=== PATIENT | male | born 1950 | race Caucasian/White ===

== ENCOUNTER 2022-11-21 16:56 | Outpatient (CLI) | payer MEDICARE, BC | END 2022-11-21 16:57 | disposition critical access hospital (66) | LOC: EMS 16:56 | DX: M54.50 Low back pain, unspecified (principal); M79.605 Pain in left leg; R20.0 Anesthesia of skin | CPT/HCPCS: A0425; A0427 ==

== ENCOUNTER 2022-11-21 17:14 | Emergency (ER) | payer MEDICARE, BC ==
[2022-11-21] MEDS ORDERED: HYDROmorphone 1 MG/ML CARPUJECT IVP STA ×2 (17:22→19:00)
[2022-11-21] MEDS ORDERED: KETOROLAC 30 MG/ML VIAL IVP STA (17:22)
--- NOTE | 2022-11-21 17:49 | ED Physician Documentation ---
History of Present Illness - Stated complaint Stated Complaint: LOW BACK PX - Chief complaint Chief Complaint: Back Pain - History obtained from History obtained from: Patient - Additonal information Additional information: 72 yo M visiting the area from [place] to see his daughter presents w/ left lower back pain radiating into the buttocks and down the left leg. Sx present for several days, worse today. He denies any known injury, no falls. He does state he has been lifting some heavy bags recently but denies any acute pain w/ those activities. He denies any fever, chills, cough or URI sx, cp or dyspnea, abd pain, n/v/d/c, or urinary sx. He denies any flank pain. He has no saddle anesthesia, no fever or chills, no foot drop. He has no hx/o IVDU. He does have a hx/o right sided sciatica that felt somewhat similar though this is worse. It went away w/ chiropractor work and time. He called EMS today due to the increased pain and was given 150mcg of fentanyl w/ mild relief. He feels better when he pulls his legs towards him and hyperflexes the hip joint on either side. Worse w/ straight legs or raising legs up. He took a dose of motrin x 1 at home but otherwise took no otc treatment stating that he doesn't like to take medication. Review of Systems Constitutional: reports: Reviewed and negative Cardiac: reports: Reviewed and negative Respiratory: reports: Reviewed and negative GI: reports: Reviewed and negative : reports: Reviewed and negative Skin: reports: Reviewed and negative Musculoskeletal: reports: Back pain. denies: Neck pain, Extremity pain, Joint pain, Extremity swelling, Joint swelling, Pain with weight bearing Neurologic: reports: Reviewed and negative PD PAST MEDICAL HISTORY - Past Medical History Past Medical History: Yes Musculoskeletal: Other (sciatica) - Past Surgical History Past Surgical History: No - Present Medications Home Medications: Ambulatory Orders Medication Instructions Recorded Confirmed Cyclobenzaprine [Flexeril] 10 mg PO TID PRN 6 Days #20 tablet 11/21/22 HYDROcod/ACETAM 5/325 [[place] 5/325] 1 - 2 tablet PO Q6H PRN #14 tablet 11/21/22 methylPREDNISolone [Medrol Dose 1 each PO .PACKAGEINSTRUCTIONS 6 11/21/22 Pack] Days #1 each - Allergies Allergies/Adverse Reactions: Allergies Allergy/AdvReac Type Severity Reaction Status Date / Time No Known Drug Allergies Allergy Verified 11/21/22 17:21 - Social History Does the pt smoke?: No Smoking Status: Never smoker Does the pt drink ETOH?: No Does the pt have substance abuse?: No - Immunizations Immunizations are current?: Yes PD ED PE NORMAL - Vitals Vital signs reviewed: Yes - General General: Alert and oriented X 3, No acute distress, Well developed/nourished - HEENT HEENT: Atraumatic, Moist mucous membranes - Cardiac Cardiac: RRR, No murmur, No gallop, No rub - Respiratory Respiratory: No respiratory distress, Clear bilaterally - Abdomen Abdomen: Normal bowel sounds, Soft, Non tender, Non distended - Back Back: No CVA TTP, No spinal TTP, Other (lower lumbar L paravertebral muscle ttp (mild) into the left buttocks and hip) - Extremities Extremities: No deformity, No tenderness to palpate, Other (+ left sided slr testing, normal lower ext sensation and 5/5 lower ext strength ) - Neuro Neuro: Alert and oriented X 3, No motor deficit, No sensory deficit, Normal speech Eye Opening: Spontaneous Motor: Obeys Commands Verbal: Oriented GCS Score: 15 Results - Vitals Vitals: Vital Signs - 24 hr 11/21/22 17:18 Temperature 36.1 C L Heart Rate 91 Respiratory 18 Rate Blood Pressure 172/93 H O2 Saturation 97 Oxygen O2 Source Room air - Rads (name of study) No standard instances Relevant Findings:: Final report received PD Medical Decision Making - ED course Complexity details: reviewed results, considered differential, d/w patient ED course: 72-year-old male presented with left lower back pain rating into the buttocks and down the left leg, worsening today. No known injury. Differentials considered included sciatica/lumbar radiculopathy/occult fracture/muscle strain/bulging disc/Hip injury. Patient had no flank pain, no urinary symptoms and low suspicion for kidney stone or urinary tract infection. He had no other abdominal or back pain. He has no history of IV drug use, low suspicion for epidural abscess at this time. He had no history of weight loss and this pain has been present for only the last several days. He has no signs of cauda equina. It does feel somewhat similar to a prior episode of sciatica. We did obtain x-rays however given his age and X-ray showed a possible obturator fracture therefore did proceed with a CT of his pelvis which was not negative. The patient did have some relief with Toradol and Dilaudid here and I recommended that we continue pain control and a short course of steroids to see if we can get any relief. The patient was advised to avoid lifting, twisting or heavy physical activity until symptoms improve but I did recommend light activity and light stretching. Patient is returning back to [place] where he lives on Saturday next week and he was advised to follow-up with his primary care provider there, he may need outpatient MRI. I do not think he needs an emergent MRI today today but if no improvement this would likely be the next step. I discussed return precautions if new or worsening symptoms such as fever, saddle anesthesia, bowel or bladder changes, foot drop or leg weakness or other new concerns. Departure - Departure Disposition: Home, Self Care Clinical Impression: Lumbar radiculopathy Condition: Good Instructions: Lumbar Radiculopathy, ED Sciatica Prescriptions: Cyclobenzaprine [Flexeril] 10 mg PO TID PRN 6 Days #20 tablet PRN Reason: Spasms methylPREDNISolone [Medrol Dose Pack] 1 each PO .PACKAGEINSTRUCTIONS 6 Days #1 each HYDROcod/ACETAM 5/325 [[place] 5/325] 1 - 2 tablet PO Q6H PRN #14 tablet PRN Reason: Pain Comments: Your symptoms are likely due to lumbar radiculopathy, and possible bulging disc. This is generally treated supportively with pain medication anti-inflammatories as well as physical therapy and time. If no improvement in the next week or so, I do recommend that you arrange for an outpatient MRI and this can be done via your primary doctor. If your symptoms worsen however, you develop a fever, you are incontinent or are unable to urinate, if you have numbness in the groin Or other new concerns, please return to the ER. It can take several weeks for this pain to improve
--- NOTE | 2022-11-21 18:07 | XRAY Report ---
PROCEDURE: Hip w/Pelvis 2-3V LT INDICATIONS: pain TECHNIQUE: AP pelvis with lateral view(s) of the left hip(s). COMPARISON: None. FINDINGS: Examination is limited by overlying zipper. Bones: There is a possible mildly displaced left obturator ring fracture. No suspicious bony lesions . Soft tissues: No suspicious soft tissue calcifications or masses. IMPRESSION: Limited examination demonstrate possible left obturator ring fracture. Reviewed by: Anuja Stanley MD on 11/21/2022 5:05 PM [facility] Approved by: Anuja Stanley MD on 11/21/2022 5:05 PM [facility] Station ID: [id number]
--- NOTE | 2022-11-21 18:07 | XRAY Report ---
PROCEDURE: Lumbar Spine 2 View INDICATIONS: pain TECHNIQUE: 3 views of the lumbar spine were acquired. COMPARISON: None. FINDINGS: Bones: 5 [id number] vertebrae are present. Multilevel disc space narrowing and endplate osteop hyte formation, as well as facet hypertrophy. 4 mm of antral cases of L4 on L5. There is normal bony alignment. No vertebral body compression fractures. No suspicious bony lesions. Soft tissues: Overlying bowel gas pattern is normal. No suspicious soft tissue calcifications. IMPRESSION: Multilevel degenerative disc and facet disease. No acute fracture. No osseous lesion. If symptoms and/or clinical suspicion for pathology continue, further assessment with repeat plain film s, or advanced imaging (e.g., CT, MRI, or bone scan) is recommended for further assessment. Reviewed by: Anuja Stanley MD on 11/21/2022 5:06 PM [facility] Approved by: Anuja Stanley MD on 11/21/2022 5:06 PM [facility]SETTE Station ID: [id number]
--- NOTE | 2022-11-21 19:06 | CT Report ---
PROCEDURE: PELVIS WO INDICATIONS: possible obturator fracture on xray TECHNIQUE: Noncontrast 3 mm axial sections acquired through the bony pelvis, with coronal and sagittal reformatt ing. For radiation dose reduction, the following was used: automated exposure control, adjustment of mA and/or kV according to patient size. COMPARISON: X-ray of the pelvis dated 11/21/2022. FINDINGS: Image quality: Excellent. Bones: No acute rheumatic abnormality. No fracture. Soft tissues: Soft tissues are normal. Visualized bowel is normal. Vasculature has atherosclerotic c alcifications. IMPRESSION: No acute abnormality of the pelvis. No fracture identified. Reviewed by: Perry Quintana on 11/21/2022 7:05 PM PDT Approved by: Perry Quintana on 11/21/2022 7:05 PM PDT Station ID: [id number]
[2022-11-21 19:42] VITALS: BP 170/92
== END 2022-11-21 20:23 | disposition home or self-care (01) ==
LOC: ED 17:14
DX: M54.16 Radiculopathy, lumbar region (principal)
CPT/HCPCS: 72100; 72192; 73502; 96374; 96375; 96376; 99283; 99284; J1170